=== PATIENT | male | born 1990 | race African-American/Black ===

== ENCOUNTER 2018-08-23 19:27 | Emergency (ER) | payer OTHER ==
[~2018-08-23] VITALS: Ht 177.8 cm; Wt 79.0 kg
[2018-08-23] MEDS ORDERED: IBUPROFEN 800MG TABLET PO ONE (22:00)
[2018-08-23 22:09] VITALS: BP 116/44
== END 2018-08-23 22:34 | disposition home or self-care (01) ==
LOC: ER 19:27
DX: S90.31XA Contusion of right foot, initial encounter (principal); W22.8XXA Striking against or struck by other objects, initial encounter; Y93.89 Activity, other specified; Y92.89 Other specified places as the place of occurrence of the external cause; Y99.8 Other external cause status
CPT/HCPCS: 73630; 99283